=== PATIENT | male | born 1960 | race American Indian/Alaskan Native ===

== ENCOUNTER → 2017-01-13 | Outpatient (CLI) | payer BC, OTHER ==
[~2017-01-13] MED LIST: CATHETER FLUSH 10 ML SYR IV PRN; IOHEXOL 350 MG/ML 100 ML (OMNIPAQUE 350) VIAL IV ONE; NS 100 ML (IVPB) BAG IV ONE
--- NOTE | 2017-01-13 13:30 | Diagnostic Imaging Report ---
CT angiogram of the abdomen performed with intravenous contrast. Coronal MIP reconstruction images are obtained. INDICATION: Followup renal artery aneurysm. 85 mL of Omnipaque 350 is administered intravenously. FINDINGS: There is a 2.2 x 1.5 x 1.5 cm right renal artery aneurysm involving the distal aspect of the right renal artery. The aneurysm has an oval shape with an inflow from the main right renal artery and outflow of anterior and posterior divisions. Minimal intramural thrombus and calcification is seen. The aneurysm is stable from 01/01/16. There is no renal artery stenosis on either side. The abdominal aorta is normal in caliber. 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 The lung bases appear stable with pulmonary nodules in the right middle lobe up to 8 mm in size likely related to scarring. The liver, the gallbladder, the spleen, the pancreas, and the adrenals appear unremarkable. There is no fluid collection or free fluid seen in the abdomen. The osseous structures appear grossly unremarkable. 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 Dictated by: Dictated on workstation # [id number]
== END ==
LOC: RAD 10:53
PROVIDERS: ATTEND Urology
DX: I72.2 Aneurysm of renal artery (principal)
CPT/HCPCS: 74175

== ENCOUNTER → 2018-01-24 | Outpatient (CLI) | payer BC, OTHER ==
[~2018-01-24] MED LIST changes: -CATHETER FLUSH 10 ML SYR IV PRN; -NS 100 ML (IVPB) BAG IV ONE; +NS 250 ML (IVPB) BAG IV ONE
--- NOTE | 2018-01-24 13:04 | Diagnostic Imaging Report ---
INDICATION: Renal artery aneurysm. TECHNIQUE: Multiple contiguous axial images were obtained through the abdomen after the uneventful bolus administration of intravenous contrast. MIP reconstructions were then performed. FINDINGS: Heart size is normal. The lung bases are clear. There is fatty infiltration of the liver. There are no focal liver lesions. The gallbladder is unremarkable. There is no biliary ductal dilatation. Spleen is normal. Pancreas and adrenal glands are unremarkable. The kidneys are normal in appearance. There is a stable right renal artery aneurysm measuring 2.2 x 1.5 cm. The abdominal aorta is nonaneurysmal. The bowel gas pattern is nonspecific. There is no free air. There is no ascites. There are no focal inflammatory changes. There are mild degenerative changes in the spine. IMPRESSION: 1. Stable 2.2 cm right renal artery aneurysm. 2. Fatty infiltration of the liver. 3. No other acute abnormality in the abdomen. Dictated by: Dictated on workstation # [id number]
== END ==
LOC: RAD 10:14
PROVIDERS: ATTEND Urology
DX: I72.2 Aneurysm of renal artery (principal); K76.0 Fatty (change of) liver, not elsewhere classified
CPT/HCPCS: 74175